=== PATIENT | female | born 1995 | race Caucasian/White ===

== ENCOUNTER 2024-07-21 04:01 | Day surgery (SDC) | payer OTHER ==
[2024-07-19 12:22] VITALS: BMI 22.6
[2024-07-21] MEDS ORDERED: PROPOFOL 20 ML ONE ×2 (08:46→09:43)
[2024-07-21] MEDS ORDERED: LIDOCAINE HCL/PF 2% SDV 5ML VIAL ONE (09:43)
[2024-07-21] MEDS ORDERED: MIDAZOLAM HCL 2 MG/2 ML SINGLE DOSE VIAL ONE (09:44)
[2024-07-21] MEDS ORDERED: ACETAMINOPHEN 325 MG TABLET (FP) PO PRN (09:49)
[2024-07-21] MEDS ORDERED: IBUPROFEN 600 MG TABLET (FP) PO PRN (09:49)
[2024-07-21] MEDS ORDERED: ONDANSETRON 4 MG/2 ML VIAL ONE (10:06)
[2024-07-21] MEDS: ceFAZolin SODIUM 1 GM VIAL IVPB ONE (10:06)
[2024-07-21] MEDS ORDERED: KETOROLAC TROMETHAMINE 30 MG/1 ML VIAL ONE (10:06)
[2024-07-21] MEDS ORDERED: DEXAMETHASONE SOD PHOSPHATE 4 MG/1 ML VIAL ONE (10:06)
[2024-07-21] MEDS ORDERED: ceFAZolin SODIUM 1 GM VIAL ONE (10:06)
[2024-07-21] MEDS ORDERED: PROMETHAZINE HCL 25 MG/1 ML VIAL IVPB PRN (10:33)
[2024-07-21] MEDS ORDERED: oxyCODONE HCL 5 MG TABLET PO PRN ×2 (10:33)
[2024-07-21] MEDS ORDERED: ONDANSETRON 4 MG/2 ML VIAL IVPUSH PRN (10:33)
[2024-07-21] MEDS: ACETAMINOPHEN 1000 MG/100 ML BAG IVPB ONE (10:42)
[2024-07-21] MEDS: LACTATED RINGERS SOLUTION 1,000 ML IV SCH (10:43)
[2024-07-21] MEDS: CEFAZOLIN SODIUM 2 GM in DEXTROSE 5%-WATER 100 ML IVPB ONE (10:44)
[2024-07-21 11:49] VITALS: RESP 20; TEMP 97.3
[2024-07-21 11:53] VITALS: BP 110/70; PULSE 80
== END 2024-07-21 11:40 | disposition home or self-care (01) ==
LOC: JASU-SURG 04:01
PROVIDERS: ATTEND Obstetrics & Gynecology
PROC: 10D17ZZ Extraction of Products of Conception, Retained, Via Natural or Artificial Opening (ICD-10-PCS; principal; 2024-07-21 09:00)
DX: O03.4 Incomplete spontaneous abortion without complication (principal); O02.89 Other abnormal products of conception; Z3A.01 Less than 8 weeks gestation of pregnancy
CPT/HCPCS: 88305-TC; 94760; J0131

== ENCOUNTER 2025-05-21 08:17 | Inpatient (IN) | payer OTHER ==
[2025-05-21 08:58] VITALS: BMI 28.9
[2025-05-21] MEDS: ELECTROLYTE-148 SOLN 1,000 ML IV SCH (09:00)
[2025-05-21] MEDS ORDERED: OXYTOCIN 30 UNITS in 0.9% NS 30 UNIT/500 ML INFUS.BAG IVPB ONE (09:23)
[2025-05-21] MEDS: OXYTOCIN 30 UNITS in 0.9% NS 30 UNIT/500 ML INFUS.BAG IVPB SCH (09:28)
[2025-05-21 09:39] LABS: ABSOLUTE IMMATURE GRANULOCYTES 0.18 x10^3/uL (0.0-0.031); BASOPHILS # 0.02 x10^3/uL (0.01-0.08); EOSINOPHIL % 0.7 % (0.7-5.8); EOSINOPHILS # 0.05 x10^3/uL (0.04-0.36); MCHC 33.2 g/dl (32.2-35.5); MEAN CELL VOLUME 90.1 fl (79.4-94.8); MEAN PLT VOLUME 11.8 fl (9.4-12.3); MONOCYTE # 0.49 x10^3/uL (0.24-0.86); MONOCYTE % 7.2 % (4.7-12.5); RDW 13.3 % (12.1-16.8)
[2025-05-21 09:49] LABS: INR 0.97 (0.83-1.09); PROTHROMBIN TIME (PATIENT) 10.6 SEC (9.7-13.0)
[2025-05-21 09:52] LABS: ACTIVATED PTT 24.3 SECONDS (25.2-36.5)
[2025-05-21 10:07] LABS: CO2 23.0 mmol/L (21-32); GLUCOSE,RANDOM 144.0 mg/dL (74-106)
[2025-05-21 10:10] LABS: CREATININE 0.7 mg/dL (0.55-1.3)
[2025-05-21] MEDS ORDERED: FENTANYL/BUPIVACAINE/NS/PF - PCEA - 50 ML DISP.SYRIN EP ONE ×3 (12:51→20:54)
[2025-05-21] MEDS: FENTANYL/BUPIVACAINE/NS/PF - PCEA - 50 ML DISP.SYRIN EP SCH (13:15)
[2025-05-21] MEDS ORDERED: NALOXONE HCL 0.4 MG/ML VIAL IVPUSH PRN (14:21)
[2025-05-21] MEDS: ACETAMINOPHEN 325 MG TABLET (FP) PO ONE (18:00)
[2025-05-21] MEDS ORDERED: ACETAMINOPHEN 325 MG TABLET (FP) ONE (18:03)
[2025-05-21 20:23] VITALS: RESP 18
[2025-05-21] MEDS ORDERED: OXYTOCIN 20 UNITS in 0.9% NS 20 UNIT/1,000 ML INFUS.BAG IV ONE (21:13)
[2025-05-21] MEDS ORDERED: LIDOCAINE HCL 1% PRESERVATIVE FREE - 30ML VIAL ONE (21:13)
[2025-05-21] MEDS: OXYTOCIN 20 UNITS in 0.9% NS 20 UNIT/1,000 ML INFUS.BAG IV SCH (23:15)
[2025-05-22] MEDS ORDERED: BENZOCAINE 20% 57 GM BOTTLE TP PRN (01:49)
[2025-05-22] MEDS ORDERED: BENZOCAINE 28 GM HEMORRHOIDAL OINTMENT TP PRN (01:49)
[2025-05-22] MEDS ORDERED: METHYLERGONOVINE MALEATE 0.2 MG/1 ML AMP IM PRN (01:49)
[2025-05-22] MEDS ORDERED: BISACODYL 10 MG SUPP.RECT RC PRN (01:49)
[2025-05-22] MEDS ORDERED: WITCH HAZEL 50% (TUCKS) 40 PAD/JAR PAD TP PRN (01:49)
[2025-05-22] MEDS: IBUPROFEN 600 MG TABLET (FP) PO PRN (02:50)
[2025-05-22 06:50] LABS: ABSOLUTE IMMATURE GRANULOCYTES 0.11 x10^3/uL (0.0-0.031); BASOPHILS # 0.02 x10^3/uL (0.01-0.08); EOSINOPHIL % 0.1 % (0.7-5.8); EOSINOPHILS # 0.02 x10^3/uL (0.04-0.36); MCHC 32.4 g/dl (32.2-35.5); MEAN CELL VOLUME 92.1 fl (79.4-94.8); MEAN PLT VOLUME 11.5 fl (9.4-12.3); MONOCYTE # 1.29 x10^3/uL (0.24-0.86); MONOCYTE % 8.8 % (4.7-12.5); RDW 13.3 % (12.1-16.8)
[2025-05-22] MEDS: ACETAMINOPHEN 325 MG TABLET (FP) PO PRN (08:22)
[2025-05-22] MEDS: PRENATAL VITAMINS W/ FOLIC ACID TABLET (FP) PO SCH (11:54)
[2025-05-22] MEDS: FERROUS SO4 325 MG TABLET (FP) PO SCH (11:54)
[2025-05-22 14:38] LABS: HIV INTERPRETATION NEGATIVE (NEGATIVE)
[2025-05-23 10:12] VITALS: BP 105/68; PULSE 81; TEMP 97.9
[2025-05-23] MEDS: DIPHTH,PERTUSS(ACELL),TET 0.5 ML DISP.SYRIN IM ONE (12:46)
[2025-05-23] MEDS ORDERED: SENNOSIDES/DOCUSATE COMBO (SENNA PLUS) TABLET (UD) PO PRN (22:00)
== END 2025-05-23 14:00 | disposition home or self-care (01) | DRG 807 ==
LOC: JLDR 08:17 → J3W 05-22 02:04
PROVIDERS: ADMIT Obstetrics & Gynecology; ATTEND Obstetrics & Gynecology
PROC: 10E0XZZ Delivery of Products of Conception, External Approach (ICD-10-PCS; principal; 2025-05-21)
PROC: 0W8NXZZ Division of Female Perineum, External Approach (ICD-10-PCS; 2025-05-21)
DX: O80 Encounter for full-term uncomplicated delivery (principal); Z3A.39 39 weeks gestation of pregnancy; Z37.0 Single live birth
CPT/HCPCS: 36415; 59409; 80048; 82962; 85025; 85610; 85730; 86780; 86850; 86900; 86901; 87389; 90715